=== PATIENT | female | born 1975 | race American Indian/Alaskan Native ===

== ENCOUNTER 2024-04-10 04:08 | Day surgery (SDC) | payer OTHER ==
[2024-04-09 15:50] VITALS: BMI 20.1
[2024-04-10] MEDS ORDERED: ONDANSETRON 4 MG/2 ML VIAL ONE (08:25)
[2024-04-10] MEDS ORDERED: PROPOFOL 20 ML ONE (08:25)
[2024-04-10] MEDS ORDERED: FENTANYL CITRATE/PF 50 MCG/ML VIAL ONE ×4 (08:25→11:15)
[2024-04-10] MEDS ORDERED: DEXAMETHASONE SOD PHOSPHATE 4 MG/1 ML VIAL ONE (08:25)
[2024-04-10] MEDS ORDERED: MIDAZOLAM HCL 2 MG/2 ML SINGLE DOSE VIAL ONE (08:26)
[2024-04-10] MEDS ORDERED: oxyCODONE HCL 5 MG TABLET PO PRN (09:34)
[2024-04-10] MEDS ORDERED: ONDANSETRON 4 MG/2 ML VIAL IVPUSH PRN (09:34)
[2024-04-10] MEDS ORDERED: LACTATED RINGERS SOLUTION 1,000 ML IV SCH (09:45)
[2024-04-10] MEDS: ceFAZolin 2 GRAM PREMIX BAG IVPB ONE (09:46)
[2024-04-10] MEDS ORDERED: ACETAMINOPHEN INJECTION 100 ML IVPB ONE (10:01)
[2024-04-10] MEDS ORDERED: GENTAMICIN SO4 80 MG/2 ML VIAL ONE (10:01)
[2024-04-10] MEDS: GENTAMICIN 80MG PREMIX BAG IVPB ONE (10:07)
[2024-04-10] MEDS ORDERED: ePHEDrine SULFATE 50 MG/1 ML AMPULE ONE (10:22)
[2024-04-10] MEDS ORDERED: POVIDONE-IODINE OINTMENT 10% - 28.4 GM TUBE ONE (10:34)
[2024-04-10] MEDS: SILVER NITRATE 75% APPLIC STCK 1 PKT EACH TP ONE (10:35)
[2024-04-10] MEDS: BACITRACIN ZINC 15 GM TUBE TOPICAL OINTMENT TP ONE (10:35)
[2024-04-10] MEDS ORDERED: BACITRACIN ZINC 15 GM TUBE TOPICAL OINTMENT ONE (10:35)
[2024-04-10 12:46] VITALS: BP 112/79; PULSE 74; RESP 18; TEMP 97.8
== END 2024-04-10 13:53 | disposition home or self-care (01) ==
LOC: JASU-SURG 04:08
PROVIDERS: ATTEND Obstetrics & Gynecology
PROC: 0UBL0ZZ Excision of Vestibular Gland, Open Approach (ICD-10-PCS; principal; 2024-04-10 08:30)
DX: N75.0 Cyst of Bartholin's gland (principal)
CPT/HCPCS: 81025; 86850; 86900; 86901; 88304-TC; 94760; J0131